=== PATIENT | female | born 1965 | race American Indian/Alaskan Native ===

== ENCOUNTER 2016-12-04 08:37 | Outpatient (CLI) | payer OTHER ==
[~2016-12-04 08:37] MED LIST: PROVENTIL IH ONE
== END 2016-12-04 08:38 | disposition home or self-care (01) ==
LOC: PF 08:37
PROVIDERS: ATTEND Internal Medicine
DX: R05 Cough (principal)
CPT/HCPCS: 36415; 82785; 94060; 94640; 94726; 94729

== ENCOUNTER 2018-02-08 08:10 | Outpatient (CLI) | payer OTHER ==
--- NOTE | 2018-02-08 12:33 | Fluoroscopy Report ---
Modified barium swallow with video fluoroscopy: History: Cough possible aspiration. Findings: There was no obstruction noted of the passage of ingested liquid and semisolid and solid through the cervical esophagus. Additional findings and be provided by speech therapist. Impression: Findings as detailed above. Fluoroscopy time 0.7 minutes.
== END 2018-02-08 08:11 | disposition home or self-care (01) ==
LOC: PT 08:10
PROVIDERS: ATTEND Specialist
DX: J69.0 Pneumonitis due to inhalation of food and vomit (principal)
CPT/HCPCS: 74230; 92611; G8996; G8997; G8998

== ENCOUNTER 2019-05-16 07:51 | Outpatient (CLI) | payer OTHER ==
--- NOTE | 2019-05-16 09:06 | Cat Scan Report ---
CT SINUSES HISTORY: COMPARISON: None. TECHNIQUE: Axial images of the sinuses were obtained. Coronal and sagittal reformats were generated. All CT scans at this location are performed using CT dose reduction for ALARA by means of automated exposure control. CONTRAST: None. FINDINGS: Nasal septum: Septum deviates to the right side by 5 mm. Paranasal sinuses: Clear. Ostiomeatal complex: No significant abnormality. Nasal turbinates: Mild cauliflower deformity suggesting allergic rhinitis. Visualized mastoid air cells: No significant abnormality. Visualized intracranial space: No significant abnormality. Visualized orbits: No significant abnormality. Additional findings: None. IMPRESSION: Normal sinuses. Mild deviated septum. Findings suggestive of allergic rhinitis. Signer Name: Duarte Mazariegos Jr, MD Signed: 05/16/2019 9:02 AM Workstation Name: [id number]
== END 2019-05-16 07:52 | disposition home or self-care (01) ==
LOC: CT 07:51
PROVIDERS: ATTEND Specialist
DX: J34.2 Deviated nasal septum (principal); J32.9 Chronic sinusitis, unspecified
CPT/HCPCS: 70486

== ENCOUNTER 2020-04-27 14:02 | Outpatient (CLI) | payer OTHER ==
--- NOTE | 2020-04-27 16:27 | XRay Report ---
CHEST 2 VIEWS INDICATION / CLINICAL INFORMATION: COUGH. COMPARISON: None available. FINDINGS: SUPPORT DEVICES: None. HEART / MEDIASTINUM: No significant abnormality. LUNGS / PLEURA: No significant pulmonary or pleural abnormality. No pneumothorax. ADDITIONAL FINDINGS: No significant additional findings. IMPRESSION: No significant abnormality Signer Name: Anil Ulrich MD FACR Signed: 04/27/2020 4:22 PM Workstation Name: [id number]
== END 2020-04-27 14:03 | disposition home or self-care (01) ==
LOC: XRAY 14:02
DX: R05 Cough (principal)
CPT/HCPCS: 71046